=== PATIENT | male | born 1975 | race Caucasian/White ===

== ENCOUNTER 2017-07-17 19:21 | Emergency (ER) | payer OTHER ==
[~2017-07-17] VITALS: Ht 165.1 cm; Wt 96.2 kg
[2017-07-17] MEDS ORDERED: LISINOPRIL10 MG PO (19:42)
[2017-07-17] MEDS ORDERED: METFORMIN HCL500 MG PO (19:42)
[2017-07-17] MEDS ORDERED: CRESTOR20 MG PO (19:42)
[2017-07-17] MEDS ORDERED: FLEXERIL PO (20:15)
[2017-07-17] MEDS ORDERED: MEDROLDOSEPACK PO (20:15)
[2017-07-17] MEDS ORDERED: TRAMADOL 50 MG50 MG PO (20:16)
== END 2017-07-17 20:56 | disposition home or self-care (01) ==
LOC: ER 19:21
DX: M54.5 Low back pain (principal); I10 Essential (primary) hypertension; E11.9 Type 2 diabetes mellitus without complications; E78.00 Pure hypercholesterolemia, unspecified; F17.210 Nicotine dependence, cigarettes, uncomplicated; Z88.1 Allergy status to other antibiotic agents; Z88.5 Allergy status to narcotic agent